=== PATIENT | male | born 1990 | race Caucasian/White ===

== ENCOUNTER 2018-01-07 01:17 | Day surgery (SDC) | payer SELFPAY ==
[2018-01-07] MEDS ORDERED: cefOXitin 2 GM in Premix Bag 1 BAG IV ONE (01:23)
[2018-01-07] MEDS ORDERED: Lactated Ringers 1,000 ML IV SCH ×3 (01:30→05:00)
[2018-01-07] MEDS ORDERED: ceFAZolin 2 GM in Premix Bag 1 BAG IV ONE (01:51)
[2018-01-07] MEDS ORDERED: Sodium Chloride 0.9% 2.5 ML Syringe FLUSH PRN (01:52)
[2018-01-07] MEDS ORDERED: Sodium Chloride 0.9% 10 ML Syringe FLUSH PRN (01:52)
--- NOTE | 2018-01-07 01:56 | PCM.PREANE ---
Preanesthetic Assessment - Anesthesia/Transfusion/Family Hx Anesthesia History: No Prior Anesthesia Family History of Anesthesia Reaction: No Transfusion History: No Prior Transfusion(s) Intubation History: Unknown - Review of Systems General: No Symptoms Pulmonary: No Symptoms Cardiovascular: No Symptoms Gastrointestinal: No Symptoms Neurological: No Symptoms Other: Reports: None - Physical Assessment NPO Status Date: 01/06/18 NPO Status Time: 12:00 O2 Sat by Pulse Oximetry: 94 Respiratory Rate: 18 Vital Signs: Last Vital Signs Temp 97.7 F 01/07/18 01:23 Pulse 75 01/07/18 01:23 Resp 18 01/07/18 01:23 BP 135/72 01/07/18 01:23 Pulse Ox 94 L 01/07/18 01:23 Height: 6 ft 3 in Weight: 158.757 kg ASA Class: 2E Mental Status: Alert & Oriented x3 Airway Class: Mallampati = 2 Dentition: Reports: Normal Dentition Thyro-Mental Finger Breadths: 3 Mouth Opening Finger Breadths: 3 ROM/Head Extension: Full Lungs: Clear to Auscultation, Normal Respiratory Effort Cardiovascular: Regular Rate, Regular Rhythm - Allergies Allergies/Adverse Reactions: Allergies Allergy/AdvReac Type Severity Reaction Status Date / Time No Known Allergies Allergy Verified 01/07/18 01:25 - Anesthesia Plan Free Text/Narrative:: CBC and BMP reviewed from [facility] - Acknowledgements Anesthesia Type Planned: General Anesthesia (RSI) Pt an Appropriate Candidate for the Planned Anesthesia: Yes Alternatives and Risks of Anesthesia Discussed w Pt/Guardian: Yes Pt/Guardian Understands and Agrees with Anesthesia Plan: Yes PreAnesthesia Questionnaire HEENT History: Reports: None Cardiovascular History: Reports: None Respiratory History: Reports: Other (See Below) (Smoker) Gastrointestinal History: Reports: Other (See Below) (Appendicitis) Genitourinary History: Reports: None Musculoskeletal History: Reports: None Neurological History: Reports: Seizure (Absent seizures, 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 [No Known Home Meds] 01/07/18 [History] - CURRENT (IN HOUSE) MEDS Current Meds: Current Medications Cefoxitin Sodium 2 gm/ Premix 50 mls @ 100 mls/hr IV ONETIME ONE Stop: 01/07/18 01:52 Last Admin: 01/07/18 01:30 Dose: 100 mls/hr Lactated Ringer's (Ringers, Lactated) 1,000 mls @ 150 mls/hr IV ASDIRECTED [facility] Last Admin: 01/07/18 01:31 Dose: 150 mls/hr
[2018-01-07] MEDS ORDERED: Octyl 2-Cyanoacrylate 1 Tube ONE (02:02)
[2018-01-07] MEDS ORDERED: Bupivacaine 25%/EPINEPHrine/PF 30 ML ONE (02:02)
--- NOTE | 2018-01-07 02:02 | PCM.SN ---
- Free Text/Narrative Note: pt seen, chart reviewed; acute appendicitis, proceed w surg, rb dw pt re bleeding/infection/damage to nearby organs/postop course; pt voiced understanding and proceed; lar 150, mefoxin 2 g; [id number]
[2018-01-07] MEDS ORDERED: Propofol 200 MG/20 ML SDV ONE (02:10)
[2018-01-07] MEDS ORDERED: Ondansetron 4 MG/2 ML SDV ONE (02:10)
[2018-01-07] MEDS ORDERED: Midazolam 1 MG/ML 2 ML SDV ONE (02:10)
[2018-01-07] MEDS ORDERED: Rocuronium 10 MG/ML 10 ML Syringe ONE (02:10)
[2018-01-07] MEDS ORDERED: Lidocaine 2% 5 ML SDV ONE (02:10)
[2018-01-07] MEDS ORDERED: fentaNYL 250 MCG/5 ML SDV ONE (02:10)
[2018-01-07] MEDS ORDERED: Succinylcholine 200 MG/10 ML MDV ONE (02:10)
[2018-01-07] MEDS ORDERED: Phenylephrine/Normal Saline 100 MCG/ML 10 ML Syringe ONE (02:58)
[2018-01-07] MEDS ORDERED: fentaNYL 100 MCG/2 ML SDV ONE (04:15)
--- NOTE | 2018-01-07 04:49 | PCM.OPNOTE ---
- General Post-Op/Procedure Note Date of Surgery/Procedure: 01/07/18 Operative Procedure(s): lap appendectomy Findings: appendix was hyperemic, dilated, severely scar down solid with r colon, suggested previous perforation and healed; gross perf not observed today; [id number] Pre Op Diagnosis: acute appendicitis Post-Op Diagnosis: Same Anesthesia Technique: General ET Tube Primary Surgeon: Shawn Fitzgerald Pathology: sent Complications: None Condition: Good
[2018-01-07] MEDS ORDERED: Ondansetron 4 MG/2 ML SDV IVPUSH PRN (04:52)
[2018-01-07] MEDS: fentaNYL 100 MCG/2 ML SDV IVPUSH PRN ×2 (05:18→05:24)
[2018-01-07] MEDS: Acetaminophen/oxyCODONE 325-5 MG Tab PO PRN ×2 (06:11→12:37)
[2018-01-07] MEDS ORDERED: Diazepam 2 MG Tab PO ONE (07:18)
--- NOTE | 2018-01-07 07:30 | PCM.POSTAN ---
POST ANESTHESIA ASSESSMENT - MENTAL STATUS Mental Status: Alert, Oriented - RESPIRATORY Respiratory Status: Respiratory Rate WNL, Airway Patent, O2 Saturation Stable - CARDIOVASCULAR CV Status: Pulse Rate WNL, Blood Pressure Stable - GASTROINTESTINAL GI Status: No Symptoms - POST OP HYDRATION Hydration Status: Adequate & Stable
--- NOTE | 2018-01-07 07:30 | PCM48HPAN ---
Post Anesthesia Note - EVALUATION WITHIN 48HRS OF ANESTHETIC Vital Signs in Normal Range: Yes Patient Participated in Evaluation: Yes Respiratory Function Stable: Yes Airway Patent: Yes Cardiovascular Function Stable: Yes Hydration Status Stable: Yes Pain Control Satisfactory: Yes Nausea and Vomiting Control Satisfactory: Yes Mental Status Recovered: Yes Resp Rate: 13
--- NOTE | 2018-01-07 09:57 | HP ---
DATE OF : 1990 PRIMARY CARE PHYSICIAN: None PCP This is a transfer from [place]. The ER provider called me directly and after talking to the ER directly, I called the triage nurse and the patient is now here. HISTORY OF PRESENT ILLNESS: The patient is a 27-year-old obese, BMI 44, gentleman, complained of a 12-hour history of acute onset of periumbilical pain, subsequently migrated to the right lower quadrant and CAT scan shows acute appendicitis. The patient was now in our facility. The patient complained that the pain has been sharp and is 6/10 and denied fever, chills, nausea, or vomiting. Denied prior episode and denied bright red blood per rectum. PAST MEDICAL HISTORY: Significant for no diabetes, LA, CVA, or hypertension. PAST SURGICAL HISTORY: Tonsils and adenoids as a child. SOCIAL HISTORY: The patient is a smoker and chewing tobacco. Denies alcohol use. FAMILY HISTORY: Noncontributory. ALLERGY TO MEDICATION: Refer to nursing note for details. PHYSICAL EXAMINATION: GENERAL: A very pleasant nice gentleman, in no acute distress. HEENT: Normocephalic, atraumatic. Sclerae anicteric. LUNGS: Clear to auscultation. HEART: Regular rate and rhythm. ABDOMEN: Soft, nondistended. No pulsating tender midline abdominal structure. Exquisite tenderness well localized in the right lower quadrant at McBurney point. No rebound tenderness. No Rovsing sign. LABORATORY DATA: White count 13. CAT scan, acute appendicitis, no perforation. IMPRESSION: Acute appendicitis. He will benefit from timely surgical intervention, and we will offer laparoscopic versus open appendectomy. Risks and benefits discussed with the patient including bleeding, infection, damage to nearby organ and because of the patient's body habitus, BMI of 44, there is a possibility that the instrument is not long enough, then we will switch to modified open. The patient now voiced understanding to proceed as planned. We will start with lactated Ringer's 150 and Mefoxin IV 2 g and proceed with surgery. JASMINA / ZEYNEP /[id number]
--- NOTE | 2018-01-07 12:42 | OR ---
SURGEON: Shawn Fitzgerald MD DATE OF PROCEDURE: PREOPERATIVE DIAGNOSIS: Acute appendicitis. POSTOPERATIVE DIAGNOSIS: Acute appendicitis. PROCEDURE PERFORMED: Laparoscopic appendectomy. COMPLICATIONS: None. FINDINGS: The appendix was retrocecal and making a U-turn on top of the colon and at the middle of the appendix and scarred down severely to the colon makes dissection almost impossible. The appendix was removed en bloc, and gross perforation is not observed. At the end of surgery, Surgicel was applied for hemostasis. DESCRIPTION OF PROCEDURE: The patient was taken to the operating room and placed in the supine position. Following induction of general endotracheal anesthesia, the patient's abdomen was prepped and draped in the sterile fashion. A time-out has been called. The patient was identified. The procedure was identified. The antibiotics were identified. The procedure then proceeded. The abdomen was prepped and draped in a standard fashion. After assessment of appropriate landmarks, a 12 millimeter trocar was inserted supraumbilically using Optiview and pneumoperitoneum was then achieved. This was followed with placement of 5 millimeter port in the right upper quadrant and another 5 millimeter port infraumbilically. The camera was inserted supraumbilical site and two laparoscopic [place] retractors were then inserted through the other two sites. Following the cecum, the appendix was located. The appendix was then lifted up, and using a GI stapler the appendix was amputated at the base. And using the GI stapler, the mesoappendix was then amputated. The appendix was retrieved by an endoscopic bag and sent for pathologist. This was then followed by re-insertion of the camera to examine the staple line, and hemostasis. The trocars were then removed. The umbilical site was closed with 2-0 Vicryl deep stitch and 4 -0 Vicryl and Dermabond; the other 2 5 mm port sites were closed with 4-0 Vicryl and Dermabond. The patient was then awakened, extubated, and transferred to the recovery room in hemodynamically stable condition. Prior to closing, sponge count and instrument count was correct. Dr. Fitzgerald was present throughout the whole procedure. As always, thank you for the kind referral. INTRAOPERATIVE FINDINGS: As dictated above. The patient's BMI of 43.7 also makes it technically challenge and appendix making a U-turn almost at the liver edge. Possible that has been perforated 6 months to 1 year ago and forming the scar. Today, gross perforation is not observed. JASMINA / ZEYNEP /[id number]
== END 2018-01-07 15:30 | disposition home or self-care (01) ==
LOC: MW.SDS 01:17 → MW.MS 01:51 → MW.SDS 15:30
PROVIDERS: ATTEND Surgery
DX: K35.80 Unspecified acute appendicitis (principal); E66.9 Obesity, unspecified; Z68.41 Body mass index [BMI] 40.0-44.9, adult; F17.220 Nicotine dependence, chewing tobacco, uncomplicated
CPT/HCPCS: 44970; A9270; J0330; J0694; J2250; J2370; J2405; J2704; J3010; J7120; 88304; C1776